=== PATIENT | male | born 1945 | race Caucasian/White ===

== ENCOUNTER 2016-10-22 08:17 | Emergency (ER) | payer MEDICARE ==
[2016-10-22 09:36] VITALS: BP 137/69
--- NOTE | 2016-10-22 09:42 | ED ---
Skin Complaint - HPI Summary HPI Summary: Pt here for staple removal. Head injury 10 days ago and 4 castillo in scalp. No bloody/purulent drainage nor fever - no pain. Healing well. - History of Current Complaint Chief Complaint: EDLacSutureRecheck Time Seen by Provider: 10/22/16 08:45 Stated Complaint: STAPLE REMOVAL Hx Obtained From: Patient Pain Intensity: 0 Pain Scale Used: 0-10 Numeric - Allergy/Home Medications Allergies/Adverse Reactions: Allergies Allergy/AdvReac Type Severity Reaction Status Date / Time Penicillin V [From Pen-Vee-K] Allergy Rash And Verified 04/19/16 18:12 Itching PMH/Surg Hx/FS Hx/Imm Hx Previously Healthy: Yes Endocrine/Hematology History: Denies: Hx Anticoagulant Therapy, Hx Blood Disorders, Hx Diabetes Cardiovascular History: Reports: Hx Hypertension - ON MEDS Denies: Hx Pacemaker/ICD Sensory History: Denies: Hx Hearing Aid Psychiatric History: Denies: Hx Panic Disorder - Cancer History Cancer Type, Location and Year: 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 Infectious Disease History: No Infectious Disease History: Denies: Traveled Outside the [place] in Last 30 Days - Family History Known Family History: Positive: None Negative: Cardiac Disease, Hypertension - Social History Alcohol Use: Rare Substance Use Type: Reports: None Smoking Status (MU): Former Smoker Review of Systems Negative: Fever, Chills Skin: Other - see HPI Neurological: Negative Psychological: Normal All Other Systems Reviewed And Are Negative: Yes Physical Exam Triage Information Reviewed: Yes Vital Signs On Initial Exam: Initial Vitals Temp Pulse Resp BP Pulse Ox 97.4 F 72 18 146/88 97 10/22/16 08:26 10/22/16 08:26 10/22/16 08:26 10/22/16 08:26 10/22/16 08:26 Vital Signs Reviewed: Yes Appearance: Positive: Well-Appearing, No Pain Distress, Well-Nourished Skin: Positive: Warm, Dry - 4 castillo within dermis of Lt superior parietal scalp - scabbing - no erythema, no edema, no drainage - NTTP Eyes: Positive: Normal, EOMI, Conjunctiva Clear ENT: Positive: Hearing grossly normal Neck: Positive: Supple Respiratory/Lung Sounds: Positive: Breath Sounds Present Cardiovascular: Positive: Normal Musculoskeletal: Positive: Normal, Strength/ROM Intact Neurological: Positive: Normal, Sensory/Motor Intact, Alert, Oriented to Person Place, Time, CN Intact II-III Psychiatric: Positive: Normal Procedures - Procedure Summary Procedure Summary: 4 castillo removed w/o difficulty - pt tolerated well Diagnostics - Vital Signs Vital Signs Temp Pulse Resp BP Pulse Ox 10/22/16 09:34 97.5 F 70 16 137/69 10/22/16 08:45 97.4 F 72 18 146/88 98 10/22/16 08:26 97.4 F 72 18 146/88 97 - Laboratory Lab Statement: Any lab studies that have been ordered have been reviewed, and results considered in the medical decision making process. Course/Dx - Diagnoses Provider Diagnoses: Removal of staple Discharge - Discharge Plan Condition: Stable Disposition: HOME Patient Education Materials: Acute Wounds (ED) Referrals: Jeanmarie Leo MD [Primary Care Provider] - Additional Instructions: Continue to care for your wound and monitor for signs/symptoms of infection. Follow-up with PCP. *If you develop fever, chills, purulent drainage, return to ED
== END 2016-10-22 09:34 | disposition home or self-care (01) ==
LOC: ED 08:17
DX: Z48.02 Encounter for removal of sutures (principal); S01.01XD Laceration without foreign body of scalp, subsequent encounter; X58.XXXA Exposure to other specified factors, initial encounter; Y93.9 Activity, unspecified; Y92.9 Unspecified place or not applicable
CPT/HCPCS: 99281